=== PATIENT | female | born 2000 | race Caucasian/White ===

== ENCOUNTER 2024-01-05 14:09 | Day surgery (SDC) | payer MEDICAID, OTHER ==
[~2024-01-05] VITALS: Ht 170.2 cm; Wt 90.1 kg
[~2024-01-05 14:09] MED LIST: DEBL1TAB PO
[2024-01-05] MEDS ORDERED: LR 1,000 ML IV SCH ×2 (14:40→18:05)
[2024-01-05] MEDS ORDERED: MIDAZOLAM INJ 2MG/2ML VIAL As Ordered ONE (15:52)
[2024-01-05] MEDS ORDERED: SUGAMMADEX SODIUM 500 MG/5 ML VIAL (BRIDION) As Ordered ONE (15:53)
[2024-01-05] MEDS ORDERED: ONDANSETRON 4MG 2ML VIAL As Ordered ONE (15:53)
[2024-01-05] MEDS ORDERED: LIDOCAINE 2% 100MG/5ML SDV (FOR ANES.) As Ordered ONE (15:53)
[2024-01-05] MEDS ORDERED: fentaNYL 100 MCG/2 ML INJECTION As Ordered ONE (15:53)
[2024-01-05] MEDS ORDERED: propofoL 200 MG/20 ML VIAL As Ordered ONE (15:53)
[2024-01-05] MEDS ORDERED: KETOROLAC 60MG 2ML VIAL As Ordered ONE (15:53)
[2024-01-05] MEDS ORDERED: ROCURONIUM BROMIDE 50MG/5ML VIAL As Ordered ONE (15:53)
[2024-01-05] MEDS: INDOCYANINE GREEN 25MG VIAL (IC-GREEN) As Ordered ONE (16:44)
[2024-01-05] MEDS: INDOCYANINE GREEN 25MG VIAL (IC-GREEN) IV ONE (16:45)
[2024-01-05] MEDS: HEPARIN SOD (PORCINE) 5000UNITS/ML 1ML VIAL/SYRINGE SQ ONE (17:00)
[2024-01-05] MEDS ORDERED: ACETAMINOPHEN 1000MG 100ML IV BAG As Ordered ONE (17:05)
[2024-01-05] MEDS: ceFAZolin SOD 2 GM in IV 1 EA IV ONE (17:10)
[2024-01-05] MEDS ORDERED: HYDROmorphone HCL 2MG/ML 1ML VIAL As Ordered ONE (17:21)
[2024-01-05] MEDS ORDERED: HYDROMORPHONE HCL 0.5 MG/ 0.5 ML SYRINGE IV PRN (18:05)
[2024-01-05] MEDS ORDERED: fentaNYL 100 MCG/2 ML INJECTION IV PRN (18:05)
[2024-01-05] MEDS: ONDANSETRON 4MG 2ML VIAL IV PRN (18:37)
[2024-01-05] MEDS: oxyCODONE 5MG TAB PO PRN (19:00)
[2024-01-05 19:47] VITALS: BP 130/77; TEMP 97.1; O2SAT 100
== END 2024-01-05 19:51 | disposition home or self-care (01) ==
LOC: M SDC 14:09
PROVIDERS: ATTEND Surgery
DX: K81.9 Cholecystitis, unspecified (principal); K82.8 Other specified diseases of gallbladder; F17.290 Nicotine dependence, other tobacco product, uncomplicated; Z90.49 Acquired absence of other specified parts of digestive tract; Z86.711 Personal history of pulmonary embolism; Z79.3 Long term (current) use of hormonal contraceptives
CPT/HCPCS: 47562; 81025; 88304; J0131; J0665; J0690; J1100; J1170; J1885; J2250; J2405; J3010; Q9968; S2900